=== PATIENT | male | born 1945 | race Caucasian/White ===

== ENCOUNTER 2021-06-24 09:11 | Day surgery (SDC) | payer OTHER ==
[2021-06-23 11:09] LABS: Absolute Lymphocytes (CBC) 1.7 K/uL (0.7-4.9); Hematocrit 36.1 % (39.6-49.0); Lymphocytes % 19.9 % (15.3-44.8); MPV 8.2 fL (7.6-11.3); RBC Red Blood Cell Count 4.22 M/uL (4.33-5.43)
[2021-06-24] MEDS ORDERED: Ringers Lactate 1,000 ML IV ONE (09:25)
[2021-06-24] MEDS ORDERED: CEFAZOLIN SODIUM 1 GM/VIAL ONE (10:05)
[2021-06-24] MEDS ORDERED: NA CHLORIDE 0.9% 50 ML ONE (10:05)
[2021-06-24] MEDS ORDERED: FENTANYL CITR 100 MCG/2 ML ONE (11:00)
[2021-06-24] MEDS ORDERED: LIDOCAINE 1% MPF 5 ML VIAL ONE (11:00)
[2021-06-24] MEDS ORDERED: propofoL 200 MG/20 ML VIAL IV ONE ×2 (11:00→11:06)
[2021-06-24] MEDS ORDERED: LIDOCAINE 1% MPF 30 ML VIAL IJ ONE (11:14)
[2021-06-24] MEDS ORDERED: KETOROLAC 30 MG/ML INJ ONE (11:20)
[2021-06-24] MEDS ORDERED: Mastisol Adhesive Liq ONE (11:27)
--- NOTE | 2021-06-24 12:00 | P.OP ---
Date of Service: 06/24/21 Preop diagnosis: Colorectal carcinoma Postop diagnosis: Same Procedure performed: Placement of right IJ Port-A-Cath, interpretation of intraoperative fluoroscopy Surgeon: Emanuel Mejia MD Facilities Management Executive: Sandrita BANDA Estimated blood loss: Minimal Specimen: None Findings: Normal anatomy Anesthesia: MAC Complications: None Drains: None Fluids and blood products: None applicable Disposition: Recovery room Operative note: Patient brought to the OR and placed in supine position. MAC anesthesia begun. Patient prepped and draped in the usual sterile fashion. Lidocaine 1% infiltrated locally. 18-gauge needle used to access the right IJ vein. Guidewire passed and position confirmed with fluoroscopy. 3 cm counterincision made on the right anterior chest. Pocket created. Tunneling device used to place the catheter in the proper position. Seldinger technique used. Tip of the catheter placed in the SVC. Catheter cut to appropriate size and attached to the Port-A-Cath device. Port-A-Cath device attached to the subcutaneous tissue with 3-0 Vicryl. Port flushed with heparin and packed with heparin with good blood flow. 3-0 chromic used to reapproximate subcutaneous tissue and closed skin. Sterile dressing applied. Patient tolerated procedure in stable condition taken to recovery in good general condition. Chest x-ray has been ordered. CC: Dr. Zapata's office
--- NOTE | 2021-06-24 12:16 | RAD REPORT ---
EXAM DESCRIPTION: RAD - Chest Single View - 06/24/2021 12:00 pm CLINICAL HISTORY: S/P PORT A CATH PLACEMENT Chest pain. COMPARISON: No comparisons FINDINGS: Portable technique limits examination quality. The lungs are mildly emphysematous but grossly clear. The heart is normal in size. No displaced fract ures.Right-sided venous catheter is in place with its tip in the SVC. No postprocedure pneumothorax. IMPRESSION: No postprocedure pneumothorax.
[2021-06-24 12:25] VITALS: BP 111/66; TEMP 97; O2SAT 100
--- NOTE | 2021-06-24 14:51 | RAD REPORT ---
EXAM DESCRIPTION: RAD - Fluoroscopy <1 Hour - 06/24/2021 2:42 pm CLINICAL HISTORY: Device placement central venous catheter placement FINDINGS: A central venous catheter was placed into the superior vena cava. 2 fluoroscopic spot adrien ges are submitted. Fluoroscopy time .2 minutes The examination was performed by Dr. Mejia
== END 2021-06-24 13:10 | disposition home or self-care (01) ==
LOC: OR 09:11
PROVIDERS: ATTEND Surgery
PROC: 0JH60WZ Insertion of Totally Implantable Vascular Access Device into Chest Subcutaneous Tissue and Fascia, Open Approach (ICD-10-PCS; principal; 2021-06-24 11:00)
DX: C18.9 Malignant neoplasm of colon, unspecified (principal); Z20.822 Contact with and (suspected) exposure to COVID-19
CPT/HCPCS: 85025; 36415; 71045; 76000; 36561; U0003; J2704 ×2; J3010; J7120; J0690

== ENCOUNTER 2022-01-29 19:55 | Emergency (ER) | payer OTHER ==
[2022-01-29] MEDS ORDERED: ONDANSETRON 4 MG/2 ML VIAL ONE (20:57)
[2022-01-29 21:00] LABS: Absolute Lymphocytes (CBC) 0.8 K/uL (0.7-4.9); Hematocrit 35.2 % (39.6-49.0); Lymphocytes % 5.6 % (15.3-44.8); MCV 84.3 fL (80-100); RBC Red Blood Cell Count 4.17 M/uL (4.33-5.43)
--- NOTE | 2022-01-29 21:06 | RAD REPORT ---
EXAM DESCRIPTION: RAD - Chest Single View - 01/29/2022 8:46 pm CLINICAL HISTORY: FEVER COMPARISON: Portable June 24 TECHNIQUE: AP portable chest image was obtained 01/29/2022 8:46 pm . FINDINGS: Patient has a baseline prominent interstitial lung pattern not substantially different fro m comparison. Mild interstitial edema or infiltrate could be masked by this baseline pattern. Right-sided Port-A-Cath remains in place. Heart and vasculature are normal. No measurable pleural effusion and no pneumothorax. No acute bony abnormality seen. No acute aortic f indings suspected. IMPRESSION: Chronic interstitial lung pattern not substantially different from comparison. Severity of chronic disease could mask superimposed edema or infiltrate. .
[2022-01-29 21:17] LABS: Albumin 2.6 g/dL (3.4-5.0); Bilirubin Total 0.9 mg/dL (0.2-1.0); Potassium 3.3 mmol/L (3.5-5.1); Protein, Total 5.8 g/dL (6.4-8.2)
[2022-01-29 21:36] LABS: SARS-COV-2 RT PCR NEGATIVE (NEGATIVE)
[2022-01-29 21:44] LABS: Urine Blood 3+ (Negative); Urine Glucose Negative (Negative); Urine Protein 3+ (Negative); Urine Specific Gravity 1.025 (1.005-1.030)
[2022-01-29 22:17] LABS: Urine Crystals Unidentified Few /HPF (None Seen); Urine Mucus Slight /HPF (None Seen); Urine RBC >50 /HPF (None Seen)
--- NOTE | 2022-01-29 22:28 | RAD REPORT ---
EXAM DESCRIPTION: CT - Abdomen Pelvis W Contrast - 01/29/2022 9:53 pm CLINICAL HISTORY: Nausea/vomiting COMPARISON: No comparisons TECHNIQUE: Biphasic, helical CT imaging of the abdomen and pelvis was performed following 100 ml non -ionic IV contrast. Oral contrast: No. All CT scans are performed using dose optimization technique as appropriate and may include automated exposure control or mA/KV adjustment according to patient size. FINDINGS: Scarring and atelectasis present in the lung bases. Heart size is upper normal. Pericardia l effusion is present up to 2 cm in thickness along the posterior margin. The liver, spleen, and pancreas show no suspicious findings. Gallbladder and biliary tree are also wi thout suspicious finding. Symmetric renal function is seen with no hydronephrosis or suspicious renal mass. No pyelonephritis o r acute parenchymal process. No adrenal abnormalities. Urinary bladder is grossly abnormal. Bladder is only partially filled. There is enhancement along the mucosal surface. Sharma are thickened and edematous with stranding and edema in the adjacent fat. Air and fluid are present within a significantly dilated stomach. Wall thickening or mass of the stom ach is not seen. An obstructing outlet mass is not identified. Duodenum is unremarkable. Multiple flu id-filled small bowel loops are present. Appendicitis is not suspected. There is a large amount of st ool causing significant distention of colon. Sigmoid and rectal sharma are slightly thickened. No veda cent inflammatory stranding. Distal esophageal sharma are thickened. No free air, free fluid or inflammatory stranding. No hernia, mass or bulky lymphadenopathy. Disc and bone degenerative changes are present. No pathologic bone process. IMPRESSION: Abnormal urinary bladder suspicious for cystitis. Correlation is needed with supporting clinical findings. Significant gastric dilatation without wall thickening, mass or obstruction identifiable. Pericardial effusion up to 2 cm in thickness. Constipation pattern with large stool volume distending the entirety of the colon.
--- NOTE | 2022-01-29 22:54 | ER ---
Nurse's Notes [facility] Name: Warren Hutchinson Age: 76 yrs Sex: Male : 1945 Arrival Date: 01/29/2022 Time: 20:06 Bed 9 Private MD: Diagnosis: Nausea with vomiting, unspecified;UTI/ Urinary tract infection, site not specified Presentation: 01/29 20:06 Chief complaint: EMS states: We were called to [facility] for 2 days of vc1 nausea/vomiting/fever and abnormal bloodwork. 20:06 Coronavirus screen: Vaccine status: Patient reports receiving the 2nd dose of the covid vc1 vaccine. Plus 2 boosters; Pfizer fatigue, fever, nausea, vomiting. Client presents with at least one sign or symptom that may indicate coronavirus-19. Standard/surgical mask placed on the client. Provider contacted for isolation considerations. Ebola Screen: No symptoms or risks identified at this time. Initial Sepsis Screen: Does the patient meet any 2 criteria? No. Patient's initial sepsis screen is negative. Does the patient have a suspected source of infection? No. Patient's initial sepsis screen is negative. Risk Assessment: Do you want to hurt yourself or someone else? Patient reports no desire to harm self or others. Onset of symptoms was January 27, 2022. Care prior to arrival: IV initiated. 18 GA, in the right forearm. 20:06 Method Of Arrival: EMS: [facility] vc1 20:06 Acuity: KARLENE 3 vc1 Triage Assessment: 20:29 General: Appears in no apparent distress. uncomfortable, ill, Behavior is calm, vc1 cooperative, appropriate for age. Pain: Denies pain. EENT: No deficits noted. Neuro: Level of Consciousness is awake, alert, obeys commands, Oriented to person, place, time, situation. Neuro: Reports weakness. Cardiovascular: No deficits noted. Respiratory: Airway is patent Respiratory effort is even, unlabored, Respiratory pattern is regular, symmetrical. GI: Reports nausea, vomiting. : No signs and/or symptoms were reported regarding the genitourinary system. Derm: No signs and/or symptoms reported regarding the dermatologic system. Musculoskeletal: Reports weakness in all over. Historical: - Allergies: 20:22 Sulfa (Sulfonamide Antibiotics); vc1 20:22 Codeine; vc1 - Home Meds: 20:22 Colace 100 mg oral cap 1 cap once daily [Active]; Ditropan XL 10 mg Oral tr24 1 tab vc1 once daily [Active]; Enulose 10 gram/15 mL oral soln 30 mL twice a day [Active]; Flomax 0.4 mg Oral cap 1 cap once daily [Active]; loperamide 2 mg Oral cap 1 caps every 4 hours for diarrhea [Active]; melatonin 5 mg Oral tab nightly [Active]; Proscar 5 mg Oral tab 1 tab once daily [Active]; verapamil 240 mg Oral TbER 1 tab once daily [Active]; - PMHx: 20:22 BPH; Colon Cancer; Anemia; Colitis; Hypertensive disorder; Paraplegia; Spinal Stenosis; vc1 21:47 Cystitis; UTI; vc1 - PSHx: 20:22 None; vc1 - Immunization history:: Client reports receiving the 2nd dose of the Covid vaccine. - Social history:: Smoking status: Patient/guardian denies using tobacco, but has a distant history of tobacco abuse. - Family history:: not pertinent. Screenin:28 Abuse screen: Denies threats or abuse. Nutritional screening: No deficits noted. vc1 Tuberculosis screening: No symptoms or risk factors identified. Fall Risk None identified. Assessment: 21:49 Reassessment: Patient and/or family updated on plan of care and expected duration. Pain vc1 level reassessed. Patient states symptoms have improved. 23:36 Reassessment: Patient is alert, oriented x 3, equal unlabored respirations, skin bb warm/dry/pink. DON at bedside for transportation back to [facility]. Vital Signs: 20:06 BP 114 / 65 Sitting (auto/reg); Pulse 80 MON; Resp 15 S; Temp 99.1(O); Pulse Ox 96% ; vc1 Weight 65.77 kg; Height 5 ft. 9 in. (175.26 cm); 21:47 Temp 99.2(O); vc1 22:08 BP 107 / 61; Pulse 65; Resp 16; Pulse Ox 97% on R/A; vc1 20:06 Body Mass Index 21.41 (65.77 kg, 175.26 cm) vc1 ED Course: 20:06 Patient arrived in ED. vc1 20:06 Kwame Keller MD is Attending Physician. rt 20:10 Maintain EMS IV. Dressing intact. Good blood return noted. Site clean \T\ dry. Gauge \T\ vc 1 site: 18g right forearm. 20:12 Pinky Phoenix, RN is Primary Nurse. vc1 20:22 Triage completed. vc1 20:28 Arm band placed on left wrist. vc1 20:29 Patient has correct armband on for positive identification. Bed in low position. Call vc1 light in reach. Side rails up X2. Client placed on continuous cardiac and pulse oximetry monitoring. NIBP monitoring applied. 20:48 Chest Single View XRAY In Process Unspecified. EDMS 20:51 Lipase Sent. vc1 20:51 CMP Sent. vc1 20:51 CBC with Diff Sent. vc1 21:35 Straight cath inserted, using sterile technique, 16 Fr. Specimen obtained. Returned vc1 cloudy urine. Patient tolerated poorly. 21:46 UA MICROSCOPIC Sent. vc1 21:55 CT Abd/Pelvis - IV Contrast Only In Process Unspecified. EDMS Administered Medications: 21:13 Drug: Zofran (Ondansetron) 4 mg Route: IVP; Site: left forearm; vc1 23:02 Follow up: Response: No adverse reaction; Marked relief of symptoms vc1 Medication: 20:29 VIS not applicable for this client. vc1 Outcome: 22:53 Discharge ordered by . rt 23:36 Patient left the ED. bb Signatures: Dispatcher [employer] EDJoana Gómez RN RN bb Pinky Phoenix RN RN vc1 Kwame Keller MD MD rt
--- NOTE | 2022-01-29 22:54 | EDPHYS ---
Physician Documentation [facility] Name: Warren Hutchinson Age: 76 yrs Sex: Male : 1945 Arrival Date: 01/29/2022 Time: 20:06 Bed 9 Private MD: KOJO Physician Kwame Keller HPI: 01/29 20:15 This 76 yrs old Male presents to ER via Unassigned with complaints of Nausea vomiting. rt 20:15 The patient presents to the emergency department with nausea, vomiting. Onset: The rt symptoms/episode began/occurred yesterday. The symptoms are aggravated by nothing. The symptoms are alleviated by nothing. Associated signs and symptoms: The patient has no apparent associated signs or symptoms. Patient with history of rectal cancer 10 weeks out from radiation scheduled to have surgery in about a week presents to the ED with nausea and vomiting starting yesterday, 3 episodes yesterday, 2 episodes today. It is nonbloody, nonbilious. Denies any abdominal pain, diarrhea, other acute complaints. States that he had a fever yesterday, but of 99 today. Symptoms are moderate severity, no other aggravating alleviating factors.. Historical: - Allergies: 20:22 Sulfa (Sulfonamide Antibiotics); vc1 20:22 Codeine; vc1 - Home Meds: 20:22 Colace 100 mg oral cap 1 cap once daily [Active]; Ditropan XL 10 mg Oral tr24 1 tab vc1 once daily [Active]; Enulose 10 gram/15 mL oral soln 30 mL twice a day [Active]; Flomax 0.4 mg Oral cap 1 cap once daily [Active]; loperamide 2 mg Oral cap 1 caps every 4 hours for diarrhea [Active]; melatonin 5 mg Oral tab nightly [Active]; Proscar 5 mg Oral tab 1 tab once daily [Active]; verapamil 240 mg Oral TbER 1 tab once daily [Active]; - PMHx: 20:22 BPH; Colon Cancer; Anemia; Colitis; Hypertensive disorder; Paraplegia; Spinal Stenosis; vc1 21:47 Cystitis; UTI; vc1 - PSHx: 20:22 None; vc1 - Immunization history:: Client reports receiving the 2nd dose of the Covid vaccine. - Social history:: Smoking status: Patient/guardian denies using tobacco, but has a distant history of tobacco abuse. - Family history:: not pertinent. ROS: 20:15 Eyes: Negative for injury, pain, redness, and discharge, ENT: Negative for injury, rt pain, and discharge, Neck: Negative for injury, pain, and swelling, Cardiovascular: Negative for chest pain, palpitations, and edema, Respiratory: Negative for shortness of breath, cough, wheezing, and pleuritic chest pain, : Negative for injury, bleeding, discharge, and swelling, MS/Extremity: Negative for injury and deformity, Skin: Negative for injury, rash, and discoloration, Neuro: Negative for headache, weakness, numbness, tingling, and seizure, Psych: Negative for depression, anxiety, suicide ideation, homicidal ideation, and hallucinations. 20:15 Constitutional: Positive for fever, Negative for body aches. 20:15 Abdomen/GI: Positive for nausea and vomiting, Negative for abdominal pain. Exam: 20:15 Constitutional: This is a well developed, well nourished patient who is awake, alert, rt and in no acute distress. Head/Face: Normocephalic, atraumatic. Eyes: Pupils equal round and reactive to light, extra-ocular motions intact. Lids and lashes normal. Conjunctiva and sclera are non-icteric and not injected. Cornea within normal limits. Periorbital areas with no swelling, redness, or edema. ENT: Nares patent. No nasal discharge, no septal abnormalities noted. Tympanic membranes are normal and external auditory canals are clear. Oropharynx with no redness, swelling, or masses, exudates, or evidence of obstruction, uvula midline. Mucous membranes moist. Neck: Trachea midline, no thyromegaly or masses palpated, and no cervical lymphadenopathy. Supple, full range of motion without nuchal rigidity, or vertebral point tenderness. No Meningismus. Chest/axilla: Normal chest wall appearance and motion. Nontender with no deformity. No lesions are appreciated. Cardiovascular: Regular rate and rhythm with a normal S1 and S2. No gallops, murmurs, or rubs. Normal PMI, no JVD. No pulse deficits. Respiratory: Lungs have equal breath sounds bilaterally, clear to auscultation and percussion. No rales, rhonchi or wheezes noted. No increased work of breathing, no retractions or nasal flaring. Abdomen/GI: Soft, non-tender, with normal bowel sounds. No distension or tympany. No guarding or rebound. No evidence of tenderness throughout. Skin: Warm, dry with normal turgor. Normal color with no rashes, no lesions, and no evidence of cellulitis. MS/ Extremity: Pulses equal, no cyanosis. Neurovascular intact. Full, normal range of motion. Neuro: Awake and alert, GCS 15, oriented to person, place, time, and situation. Cranial nerves II-XII grossly intact. Motor strength 5/5 in all extremities. Sensory grossly intact. Cerebellar exam normal. Normal gait. Psych: Awake, alert, with orientation to person, place and time. Behavior, mood, and affect are within normal limits. Vital Signs: 20:06 BP 114 / 65 Sitting (auto/reg); Pulse 80 MON; Resp 15 S; Temp 99.1(O); Pulse Ox 96% ; vc1 Weight 65.77 kg; Height 5 ft. 9 in. (175.26 cm); 21:47 Temp 99.2(O); vc1 22:08 BP 107 / 61; Pulse 65; Resp 16; Pulse Ox 97% on R/A; vc1 20:06 Body Mass Index 21.41 (65.77 kg, 175.26 cm) vc1 MDM: 20:06 Patient medically screened. rt 22:55 Differential diagnosis: Nonspecific abd pain, pancreatitis, diverticulitis, rt gastroenteritis, SBO, UTI. Data reviewed: vital signs, nurses notes, lab test result(s), radiologic studies. ED course: Patient presents to the ED with nausea, vomiting. Symptoms have resolved with treatment in the ED. The patient is found to have UTI, the leukocytosis, no other sirs indicators. He has benign abdominal examination. CT scan was obtained, i was informed of incidental findings of pericardial effusion, constipation, dilated stomach contents. Do not believe this is contributing to the patient's vomiting at this time, labs otherwise unremarkable. Patient stable for outpatient care with antibiotics, antiemetics. Believe that he is stable to keep his appointment for surgery in 1 week. He will return for any worsening symptoms or new concerning symptoms. Patient verbalized understanding is comfortable discharge.. 01/29 20:13 Order name: CBC with Diff; Complete Time: 22:24 rt 01/29 20:13 Order name: CMP; Complete Time: 22:24 rt 01/29 20:13 Order name: Lipase; Complete Time: 22:24 rt 01/29 20:13 Order name: UA MICROSCOPIC; Complete Time: 22:29 rt 01/29 20:13 Order name: COVID-19/FLU A+B; Complete Time: 22:24 rt 01/29 21:44 Order name: Urine Dipstick-Ancillary; Complete Time: 22:24 EDMS 01/29 20:13 Order name: CT Abd/Pelvis - IV Contrast Only; Complete Time: 22:40 rt 01/29 20:13 Order name: Urine Dipstick-Ancillary (obtain specimen); Complete Time: 21:46 rt 01/29 20:13 Order name: Chest Single View XRAY; Complete Time: 22:24 rt Administered Medications: 21:13 Drug: Zofran (Ondansetron) 4 mg Route: IVP; Site: left forearm; vc1 23:02 Follow up: Response: No adverse reaction; Marked relief of symptoms vc1 Disposition Summary: 01/29/22 22:53 Discharge Ordered Location: Home rt Problem: new rt Symptoms: are resolved rt Condition: Stable rt Diagnosis - Nausea with vomiting, unspecified rt - UTI/ Urinary tract infection, site not specified rt Followup: rt - With: Private Physician - When: 5 - 6 days - Reason: Discharge Instructions: - Discharge Summary Sheet rt - Urinary Tract Infection, Adult rt - Nausea and Vomiting, Adult, [id number] rt Forms: - Medication Reconciliation Form rt - Thank You Letter rt - Antibiotic Education rt - Prescription Opioid Use rt Prescriptions: - KELFEX 500 mg tab - take 1 tablet by ORAL route every 6 hours; 28 tablet; Refills: 0, Product rt Selection Permitted - Zofran 4 mg Oral Tablet - take 1 tablet by ORAL route every 12 hours As needed; 20 tablet; Refills: 0, rt Product Selection Permitted Signatures: Dispatcher [employer] Pinky Jordan RN RN vc1 Enma Garcia PA-C PA-C [id number] Kwame Keller MD MD rt
[2022-01-30 00:34] VITALS: TEMP 99.2
[2022-01-30 00:36] VITALS: BP 107/61; O2SAT 97
== END 2022-01-29 23:36 | disposition home or self-care (01) ==
LOC: ER 19:55
DX: N39.0 Urinary tract infection, site not specified (principal); I10 Essential (primary) hypertension; Z88.2 Allergy status to sulfonamides; Z88.5 Allergy status to narcotic agent; Z20.822 Contact with and (suspected) exposure to COVID-19
CPT/HCPCS: 85025; 36415; 83690; 80053; 0240U; 74177; 71045; 51702; 96374; 99284; Q9967; J2405; 81003; 81015

== ENCOUNTER 2022-07-05 11:06 | Emergency (ER) | payer OTHER ==
[2022-07-05 12:04] LABS: Absolute Lymphocytes (CBC) 0.8 K/uL (0.7-4.9); Hematocrit 36.9 % (39.6-49.0); Lymphocytes % 9.8 % (15.3-44.8); MCV 83.5 fL (80-100); MPV 7.7 fL (7.6-11.3); RBC Red Blood Cell Count 4.43 M/uL (4.33-5.43)
[2022-07-05 12:24] LABS: Albumin 3.2 g/dL (3.4-5.0); Bilirubin Total 0.7 mg/dL (0.2-1.0); Potassium 4.1 mEq/L (3.5-5.1); Protein, Total 6.3 g/dL (6.4-8.2); Protime INR 1.04
--- NOTE | 2022-07-05 13:12 | RAD REPORT ---
EXAM DESCRIPTION: CTAbdomen Pelvis W Contrast - 07/05/2022 12:58 pm CLINICAL HISTORY: Abdominal pain. ab distention COMPARISON: Abdomen Pelvis W Contrast dated 01/29/2022 TECHNIQUE: Biphasic CT imaging of the abdomen and pelvis was performed with 100 ml non-ionic IV cont rast. All CT scans are performed using dose optimization technique as appropriate and may include automated exposure control or mA/KV adjustment according to patient size. FINDINGS: Mild linear atelectasis is present in the right lung base.Small to moderate pericardial ef fusion noted. Mild fatty liver. The spleen, pancreas, adrenal glands and kidneys are within normal limits. Left lower quadrant ostomy is noted. There is significant distention of small bowel loops likely jodi cating mechanical small-bowel obstruction. Distal small bowel is somewhat decompressed. Urinary bladd er appears thickened. The appendix is normal. No free air evident. No abscess. No suspicious bony findings. IMPRESSION: Moderate distention with fluid and air of numerous small bowel loops in the central abdo men most compatible with moderate mechanical small-bowel obstruction. No pneumatosis or pneumoperiton eum. Small to moderate pericardial the fusion, appearing chronic. Thickened urinary bladder likely represents chronic cystitis.
[2022-07-05 13:58] LABS: Urine Bacteria >50 /HPF (<20); Urine RBC >50 /HPF (None Seen)
[2022-07-05] MEDS ORDERED: NA CHLORIDE 0.9% 1,000 ML ONE (14:36)
[2022-07-05] MEDS ORDERED: CEFTRIAXONE 1000 MG/VIAL ONE (14:36)
--- NOTE | 2022-07-05 14:36 | ER ---
Nurse's Notes [facility] Name: Warren Hutchinson Age: 76 yrs Sex: Male : 1945 Arrival Date: 07/05/2022 Time: 11:06 Bed 16 Private MD: Diagnosis: Small bowel obstruction;Urinary tract infection;Gross hematuria with obstruction Presentation: 07/05 11:04 Chief complaint: EMS states: patient from [facility]. Came for bleeding from penis not db emptying bladder and abdominal distention. Coronavirus screen: Vaccine status: Patient reports receiving the 2nd dose of the covid vaccine. Client denies travel out of the [place] in the last 14 days. At this time, the client does not indicate any symptoms associated with coronavirus-19. Ebola Screen: Patient negative for fever greater than or equal to 101.5 degrees Fahrenheit, and additional compatible Ebola Virus Disease symptoms Patient denies exposure to infectious person. Patient denies travel to an Ebola-affected area in the 21 days before illness onset. No symptoms or risks identified at this time. Initial Sepsis Screen: Does the patient meet any 2 criteria? No. Patient's initial sepsis screen is negative. Does the patient have a suspected source of infection? No. Patient's initial sepsis screen is negative. Risk Assessment: Do you want to hurt yourself or someone else? Patient reports no desire to harm self or others. Onset of symptoms was July 05, 2022. 11:04 Method Of Arrival: EMS: [facility] db 11:04 Acuity: KARLENE 3 db Triage Assessment: 11:13 General: Appears in no apparent distress. uncomfortable, Behavior is calm, cooperative, eh3 appropriate for age. Pain: Complains of pain in abdomen and pelvis. GI: Abdomen is round distended. Historical: - Allergies: 11:13 Codeine; eh3 11:13 Sulfa (Sulfonamide Antibiotics); eh3 11:14 Sulfa (Sulfonamide Antibiotics); db 11:14 Codeine; db - Home Meds: 11:13 Colace 100 mg Oral cap 1 cap once daily [Active]; Ditropan XL 10 mg Oral tr24 1 tab eh3 once daily [Active]; Enulose 10 gram/15 mL Oral soln 30 mL twice a day [Active]; Flomax 0.4 mg Oral cap 1 cap once daily [Active]; loperamide 2 mg Oral cap 1 caps every 4 hours for diarrhea [Active]; melatonin 5 mg Oral tab nightly [Active]; Proscar 5 mg Oral tab 1 tab once daily [Active]; verapamil 240 mg Oral TbER 1 tab once daily [Active]; - PMHx: 11:13 Anemia; BPH; Colitis; colon cancer; Cystitis; Hypertensive disorder; Paraplegia; spinal eh3 stenosis; UTI; 11:14 Gastroesophageal reflux disease; rectal cancer; Hypertensive disorder; Depressive db disorder; spinal stenosis; - PSHx: 11:14 Colostomy; rectal surgery; db - Immunization history:: Adult Immunizations up to date, Client reports receiving the 2nd dose of the Covid vaccine. - Social history:: Smoking status: unknown Smoking status: Patient denies any tobacco usage or history of. - Family history:: not pertinent. Screenin:54 [facility] ED Fall Risk Assessment (Adult) History of falling in the last 3 months, db including since admission No falls in past 3 months (0 pts) Confusion or Disorientation No (0 pts) Intoxicated or Sedated No (0 pts) Impaired Gait Yes (1 pt) Mobility Assist Device Used Yes (1 pt) Altered Elimination Yes (1 pt) Score/Fall Risk Level 3 or more points = High Risk Oriented to surroundings, Maintained a safe environment, Educated pt \T\ family on fall prevention, incl call for assistance when getting out of bed. Abuse screen: Denies threats or abuse. Denies injuries from another. Nutritional screening: No deficits noted. Tuberculosis screening: No symptoms or risk factors identified. Assessment: 11:18 Reassessment: Patient appears in no apparent distress at this time. Patient and/or db family updated on plan of care and expected duration. Pain level reassessed. Patient is alert, oriented x 3, equal unlabored respirations, skin warm/dry/pink. : Reports bleeding from penis. 12:15 Reassessment: Received report from CECILIO Veloz. renny 12:15 Reassessment: Bladder scanner not located in ER. Charge nurse, Daphne, and Director, renny Savage, notified. 12:28 General: Appears in no apparent distress. Pain: Denies pain. Neuro: Level of mb9 Consciousness is awake, alert, obeys commands, Oriented to person, place, time, situation, Appropriate for age. Cardiovascular: Patient's skin is warm and dry. Respiratory: Airway is patent Respiratory effort is even, unlabored, Respiratory pattern is regular, symmetrical. : Reports burning with urination. : Urine is blood tinged, Reports blood in urine. Derm: Skin is pink, warm \T\ dry. Musculoskeletal: Range of motion: limited in all extremities. 12:30 GI: Abdomen is round distended, Colostomy site is clean and dry. Ostomy appliance is mb9 intact. Bowel sounds present X 4 quads. Abd is non tender. 13:46 Reassessment: No changes from previously documented assessment. Patient and/or family mb9 updated on plan of care and expected duration. Pain level reassessed. Patient is alert, oriented x 3, equal unlabored respirations, skin warm/dry/pink. : Urine is blood tinged. 17:42 Reassessment: Gave report to [facility]. mb9 Vital Signs: 11:04 BP 119 / 82; Pulse 69; Resp 14; Temp 99.8(O); Pulse Ox 97% on R/A; Weight 61.23 kg; db Height 5 ft. 9 in. ; 11:30 BP 114 / 74; Pulse 65; Resp 16; Pulse Ox 96% on R/A; db 12:28 BP 121 / 75; Pulse 56; Resp 18; Pulse Ox 98% on R/A; Pain 0/10; mb9 13:45 BP 128 / 82; Pulse 56; Resp 16; Pulse Ox 100% on R/A; mb9 11:04 Body Mass Index 19.94 (61.23 kg, 175.26 cm) db 12:28 Pain Scale: Adult mb9 ED Course: 11:10 Patient arrived in ED. eh3 11:12 Kwame Keller MD is Attending Physician. rt 11:12 Roselia Corona, CECILIO is Primary Nurse. db 11:13 Triage completed. eh3 11:13 Arm band placed on. eh3 11:14 Patient placed in an exam room. db 11:49 Initial lab(s) drawn, by me, First set of blood cultures drawn by me. db 11:49 Inserted saline lock: 20 gauge in left antecubital area, using aseptic technique. Blood db collected. 12:14 Second set of blood cultures drawn by me. mb9 12:29 Placed in gown. Bed in low position. Call light in reach. Side rails up X 1. Client mb9 placed on continuous cardiac and pulse oximetry monitoring. NIBP monitoring applied. pvc monitor on. 12:29 No provider procedures requiring assistance completed. mb9 12:30 Blood Culture Adult (2) Sent. mb9 13:00 CT Abd/Pelvis - IV Contrast Only In Process Unspecified. EDMS 13:19 Bladder scan completed. [address] Keller notified. mb9 13:40 Paez cath inserted, using sterile technique, [address], balloon inflated, to mb9 gravity drainage, urine specimen collected. returned bloody urine. Patient tolerated well. 14:44 initiated transfer to [facility], faxed chart to ER as requested by Ros in transfer bd center. 17:03 Patient transferred, IV remains in place. mb9 Administered Medications: 14:38 Drug: NS 0.9% IV 1000 ml Route: IV; Rate: 1 bolus; Site: left antecubital; mb9 14:38 Drug: Rocephin IV 2 grams Route: IV; Rate: calculated rate; Site: left antecubital; mb9 Medication: 12:29 VIS not applicable for this client. mb9 Output: 17:41 Urine: 750ml (Paez); Total: 750ml. mb9 Outcome: 14:35 ER care complete, transfer ordered by . rt 17:03 Transferred to [facility] Transfer form completed. mb9 17:03 Transferred Note: Gave report to transferring nurse CECILIO Porter 17:03 Condition: stable 17:03 Instructed on the need for transfer. 17:43 Patient left the ED. mb9 Signatures: Dispatcher [employer] ED[facility] Brandy Cheung Erin, RN RN 3 Roselia Corona, RN RN Allyson Austin RN RN mb9 Kwame Keller MD MD rt Corrections: (The following items were deleted from the chart) 11:15 11:11 Chief complaint: EMS states: abdominal distention and pain, [facility] 11:15 11:11 Coronavirus screen: Vaccine status: Patient reports receiving the 2nd dose of the 3 covid vaccine. [facility] 11:15 11:11 Ebola Screen: No symptoms or risks identified at this time. [place] [id number] 11:15 11:11 Risk Assessment: Do you want to hurt yourself or someone else? Patient reports no [facility] desire to harm self or others. [facility] 11 11:11 Onset of symptoms was July 04, 2022 [place] [id number] 11 11:11 Method Of Arrival: EMS: [facility] [place] [id number] 11:11 Acuity: KARLENE 3 [place] [address] 11:56 11:54 Inserted saline lock: 20 gauge in left antecubital area, using aseptic technique. db Blood collected. db 12:30 12:28 Respiratory: Airway is patent Respiratory effort is even, unlabored, Respiratory mb9 pattern is regular, symmetrical, mb9 13:21 12:30 GI: Abdomen is round distended, Bowel sounds present X 4 quads. Abd is non tender mb9 mb9 13:52 13:45 Urinalysis+U.LAB.BRZ drawn and sent. mb9 EDMS
--- NOTE | 2022-07-05 14:36 | EDPHYS ---
Physician Documentation [facility] Name: Warren Hutchinson Age: 76 yrs Sex: Male : 1945 Arrival Date: 07/05/2022 Time: 11:06 Bed 16 Private MD: ED Physician Kawme Keller HPI: 07/05 12:20 This 76 yrs old Male presents to ER via EMS with complaints of Penile Bleeding, rt Abdominal Distention. 12:20 Patient with history of colorectal cancer status postresection presents to the ED with rt fever, reported hematuria. Patient states that he has been nauseated for about 2 days now. [facility] There is noted to be a small amount of blood in the brief. He denies any dysuria, other symptoms at this time. Symptoms are moderate in severity, no other aggravating or alleviating factors.. Historical: - Allergies: 11:13 Codeine; eh3 11:13 Sulfa (Sulfonamide Antibiotics); eh3 11:14 Sulfa (Sulfonamide Antibiotics); db 11:14 Codeine; db - Home Meds: 11:13 Colace 100 mg Oral cap 1 cap once daily [Active]; Ditropan XL 10 mg Oral tr24 1 tab eh3 once daily [Active]; Enulose 10 gram/15 mL Oral soln 30 mL twice a day [Active]; Flomax 0.4 mg Oral cap 1 cap once daily [Active]; loperamide 2 mg Oral cap 1 caps every 4 hours for diarrhea [Active]; melatonin 5 mg Oral tab nightly [Active]; Proscar 5 mg Oral tab 1 tab once daily [Active]; verapamil 240 mg Oral TbER 1 tab once daily [Active]; - PMHx: 11:13 Anemia; BPH; Colitis; colon cancer; Cystitis; Hypertensive disorder; Paraplegia; spinal eh3 stenosis; UTI; 11:14 Gastroesophageal reflux disease; rectal cancer; Hypertensive disorder; Depressive db disorder; spinal stenosis; - PSHx: 11:14 Colostomy; rectal surgery; db - Immunization history:: Adult Immunizations up to date, Client reports receiving the 2nd dose of the Covid vaccine. - Social history:: Smoking status: unknown Smoking status: Patient denies any tobacco usage or history of. - Family history:: not pertinent. ROS: 12:20 Cardiovascular: Negative for chest pain, palpitations, and edema, Respiratory: Negative rt for shortness of breath, cough, wheezing, and pleuritic chest pain, MS/Extremity: Negative for injury and deformity, Skin: Negative for injury, rash, and discoloration, Neuro: Negative for headache, weakness, numbness, tingling, and seizure, Psych: Negative for depression, anxiety, suicide ideation, homicidal ideation, and hallucinations. 12:20 Constitutional: Positive for fever, Negative for chills. 12:20 Abdomen/GI: Positive for nausea, Negative for abdominal pain, vomiting. 12:20 : Positive for hematuria, Negative for burning with urination. Exam: 12:20 Constitutional: This is a well developed, well nourished patient who is awake, alert, rt and in no acute distress. Head/Face: Normocephalic, atraumatic. Chest/axilla: Normal chest wall appearance and motion. Nontender with no deformity. No lesions are appreciated. Cardiovascular: Regular rate and rhythm with a normal S1 and S2. No gallops, murmurs, or rubs. Normal PMI, no JVD. No pulse deficits. Respiratory: Lungs have equal breath sounds bilaterally, clear to auscultation and percussion. No rales, rhonchi or wheezes noted. No increased work of breathing, no retractions or nasal flaring. Skin: Warm, dry with normal turgor. Normal color with no rashes, no lesions, and no evidence of cellulitis. MS/ Extremity: Pulses equal, no cyanosis. Neurovascular intact. Full, normal range of motion. Neuro: Awake and alert, GCS 15, oriented to person, place, time, and situation. Cranial nerves II-XII grossly intact. Motor strength 5/5 in all extremities. Sensory grossly intact. Cerebellar exam normal. Normal gait. Psych: Awake, alert, with orientation to person, place and time. Behavior, mood, and affect are within normal limits. 12:20 ECG was reviewed by the Attending Physician. 12:20 Abdomen/GI: Mild abdominal distention, colostomy bag present, no abdominal tenderness. Vital Signs: 11:04 BP 119 / 82; Pulse 69; Resp 14; Temp 99.8(O); Pulse Ox 97% on R/A; Weight 61.23 kg; db Height 5 ft. 9 in. ; 11:30 BP 114 / 74; Pulse 65; Resp 16; Pulse Ox 96% on R/A; db 12:28 BP 121 / 75; Pulse 56; Resp 18; Pulse Ox 98% on R/A; Pain 0/10; mb9 13:45 BP 128 / 82; Pulse 56; Resp 16; Pulse Ox 100% on R/A; mb9 11:04 Body Mass Index 19.94 (61.23 kg, 175.26 cm) db 12:28 Pain Scale: Adult mb9 MDM: 11:12 Patient medically screened. rt 16:28 Differential diagnosis: UTI, gross hematuria, urinary retention, bowel obstruction. rt Data reviewed: vital signs, nurses notes, lab test result(s), radiologic studies. Consideration of Admission/Observation We will transfer his patient as he is a [facility] patient and his colostomy surgery was performed at the [facility] less than 6 months ago.. I considered the following discharge prescriptions or medication management in the emergency department Medications were administered in the Emergency Department. See MAR. Independent interpretation of the following test(s) in the Emergency Department CT Scan: My interpretation is Obstruction, small bowel seen on my interpretation of the CT scan images. Care significantly affected by the following chronic conditions: Colorectal cancer status post resection. Response to treatment: the patient's symptoms have markedly improved after treatment. 07/05 11:12 Order name: Blood Culture Adult (2) rt 07/05 11:12 Order name: CBC with Diff; Complete Time: 13:14 rt 07/05 11:12 Order name: CMP; Complete Time: 13:14 rt 07/05 11:12 Order name: Lactate w/ 2H reflex if indic.; Complete Time: 13:14 rt 07/05 11:12 Order name: Protime (+inr); Complete Time: 13:14 rt 07/05 11:12 Order name: Ptt, Activated; Complete Time: 13:14 rt 07/05 13:52 Order name: Urine Microscopic Only; Complete Time: 14:00 EDMS 07/05 14:01 Order name: Urine Culture EDMS 07/05 11:12 Order name: CT Abd/Pelvis - IV Contrast Only; Complete Time: 13:14 rt 07/05 11:12 Order name: EKG; Complete Time: 11:13 rt 07/05 11:12 Order name: Accucheck; Complete Time: 12:30 rt 07/05 11:12 Order name: Cardiac monitoring; Complete Time: 11:55 rt 07/05 11:12 Order name: EKG - Nurse/Tech; Complete Time: 11:55 rt 07/05 11:12 Order name: IV Saline Lock - Large Bore; Complete Time: 12:09 rt 07/05 11:12 Order name: Labs collected and sent; Complete Time: 12:09 rt 07/05 11:12 Order name: O2 Per Protocol; Complete Time: 12: rt 07/05 11:12 Order name: O2 Sat Monitoring; Complete Time: 12: rt 07/05 11:12 Order name: Vital Signs; Complete Time: 12: rt 07/05 11:13 Order name: Bladder Scanner; Complete Time: 13:20 rt 07/05 13:20 Order name: Paez; Complete Time: 13:20 mb9 EC:20 Rate is 68 beats/min. Rhythm is regular, Normal Sinus Rhythm with No ectopy. Right axis rt deviation noted. LA interval is normal. QRS interval is normal. QT interval is normal. Clinical impression: NSR w/ Non-specific ST/T Changes. Administered Medications: 14:38 Drug: NS 0.9% IV 1000 ml Route: IV; Rate: 1 bolus; Site: left antecubital; mb9 14:38 Drug: Rocephin IV 2 grams Route: IV; Rate: calculated rate; Site: left antecubital; mb9 Disposition Summary: 07/05/22 14:35 Transfer Ordered Transfer Location[facility] rt Reason: Private Physician at Transferring Hospital rt Condition: Stable rt Problem: new rt Symptoms: are unchanged rt Accepting Physician: Dr. Jin(07/05/22 17:43) mb9 Diagnosis - Small bowel obstruction rt - Urinary tract infection rt - Gross hematuria with obstruction rt Forms: - Medication Reconciliation Form rt - SBAR form rt Signatures: Dispatcher [employer] Geneva Chu RN RN 3 Roselia Corona RN RN db Breneman, Mary Beth, RN RN mb9 Kwame Keller MD MD rt Corrections: (The following items were deleted from the chart) 13:52 11:13 Urinalysis+U.LAB.BRZ ordered. EUNICE EDMS 16:26 14:35 rt rt 17:43 16:26 Dr. Jin rt mb9
[2022-07-05 18:10] VITALS: BP 128/82; O2SAT 100
--- NOTE | 2022-07-06 14:28 | EKG ---
Test Date: 2022-07-05 Test Time: 11:27:51 Manager Of Employee Relations: BRENDAN MEASUREMENT RESULTS: Intervals: Rate: 68 OK: 170 QRSD: 84 QT: 406 QTc: 431 [place]: P: 19 OK: 170 QRS: 99 T: 13 INTERPRETIVE STATEMENTS: Normal sinus rhythm Rightward axis Anterior infarct, age undetermined Abnormal ECG No previous ECG available for comparison Electronically Signed On 07-06-22 14:26:22 CDT by Neptali Pretty
== END 2022-07-05 17:43 ==
LOC: ER 11:06
DX: K56.609 Unspecified intestinal obstruction, unspecified as to partial versus complete obstruction (principal); N39.0 Urinary tract infection, site not specified; R31.0 Gross hematuria; I10 Essential (primary) hypertension; Z85.038 Personal history of other malignant neoplasm of large intestine; Z85.048 Personal history of other malignant neoplasm of rectum, rectosigmoid junction, and anus; Z88.2 Allergy status to sulfonamides; Z88.5 Allergy status to narcotic agent
CPT/HCPCS: 87040 ×2; 87088; 85025; 87086; 36415; 85610; 83605; 85730; 81015; 80053; 74177; Q9967; J7030; J0696; 93005

== ENCOUNTER 2023-11-30 16:34 | Emergency (ER) | payer OTHER ==
[2023-11-30] MEDS ORDERED: NA CHLORIDE 0.9% 1,000 ML ONE ×2 (16:53→19:24)
[2023-11-30] MEDS ORDERED: FAMOTIDINE 20 MG/2 ML VIAL IV ONE (16:53)
[2023-11-30] MEDS ORDERED: ONDANSETRON 4 MG/2 ML VIAL ONE ×2 (16:53→23:49)
[2023-11-30 16:58] LABS: Absolute Basophils 0.1 K/uL (0-0.5); Absolute Eosinophils 0.2 K/uL (0-0.5); Absolute Lymphocytes (CBC) 1.3 K/uL (0.7-4.9); Absolute Monocytes 0.9 K/uL (0.1-1.3); Absolute Neutrophil 6.2 K/uL (1.8-8.0); Basophils % 0.7 % (0-1.3); Hematocrit 40.3 % (39.6-49.0); Hemoglobin 13.7 g/dL (13.6-17.9); Lymphocytes % 14.7 % (15.3-44.8); MCHC 33.9 g/dL (32.0-36.0); MCV 85.6 fL (80-100); MPV 7.3 fL (7.6-11.3); Monocytes % 10.5 % (3.3-12.3); Neutrophils % 72.1 % (41.7-73.7); Nucleated Red Blood Cells % 0.1 % (0-0); Platelets 308 thou/uL (152-406); RBC Red Blood Cell Count 4.71 M/uL (4.33-5.43)
[2023-11-30 17:14] LABS: Albumin 3.3 g/dL (3.4-5.0); Albumin/Globulin Ratio 0.9 (1.1-1.8); Anion Gap 11.5 mEq/L (5.0-15.0); Bilirubin Total 0.6 mg/dL (0.2-1.0); Globulin 3.8 g/dL (2.3-3.5); Potassium 3.5 mEq/L (3.5-5.1); Protein, Total 7.1 g/dL (6.4-8.2)
--- NOTE | 2023-11-30 18:27 | RAD REPORT ---
EXAMINATION: CT ABDOMEN AND PELVIS WITH CONTRAST CLINICAL INDICATION: Abd pain;Constipation TECHNIQUE: CT abdomen and pelvis was performed, after the administration of IV contrast, as per [facility] protocol. Axial, sagittal and coronal reconstructions were obtained. One or more of the following dose reduction techniques were used: Automated exposure control, adjustment of the mA and k V according to patient size, and iterative reconstruction. Unless otherwise specified, incidental findings do not require dedicated imaging follow-up. COMPARISON: No prior exam. FINDINGS: LOWER CHEST: The visualized lung bases are clear. LIVER: Normal in size and contour. No focal lesion. SPLEEN: Normal size. No focal lesion. PANCREAS: No mass, ductal dilation, or aleksander-pancreatic fluid. ADRENALS: Normal; no mass. KIDNEYS: Normal size and contour. No hydronephrosis. GASTROINTESTINAL TRACT: Multiple dilated small bowel loops are present in the central abdomen extendi ng inferiorly. This most significant dilated loop measuring 5 cm. This is compatible with a moderate mechanical small bowel obstruction. Left lower quadrant colostomy is noted. APPENDIX: Normal appendix. Small appendicolith. LYMPH NODES: No lymphadenopathy. MUSCULOSKELETAL: No acute or suspicious osseous abnormality. ADDITIONAL FINDINGS: None. IMPRESSION: Moderately severe mechanical small bowel obstruction is present.No pneumoperitoneum.
[2023-11-30] MEDS ORDERED: LIDOCAINE VISCOUS 2% 10ML ORAL SOLN ONE (18:35)
[2023-11-30] MEDS ORDERED: NA CHLORIDE 0.9% 100 ML ONE (18:57)
[2023-11-30] MEDS ORDERED: PIPERACIL/TAZO 3.375 GM VIAL IV ONE (18:58)
[2023-11-30 19:00] LABS: Specific Gravity 1.022 (1.005-1.030); Sqamous Epithelial None Seen /HPF (None Seen); Urine Bacteria None Seen /HPF (<20); Urine Bilirubin NEGATIVE (Negative); Urine Blood 2+ (Negative); Urine Clarity Clear (Clear); Urine Color Light-Yellow (Yellow); Urine Culture Reflex Order NOT NEEDED; Urine Glucose NEGATIVE (Negative); Urine Ketones NEGATIVE (Negative); Urine Microscopic Reflex YN ORDER UMIC; Urine Mucus Slight /HPF (None Seen); Urine Nitrite NEGATIVE (Negative); Urine Protein NEGATIVE (Negative); Urine Urobilinogen Normal (Normal); Urine WBC <5 /HPF (<5); Urine Yeast (Budding) Trace /HPF (None Seen)
--- NOTE | 2023-11-30 19:07 | ER ---
Nurse's Notes [facility] Name: Warren Hutchinson Age: 78 yrs Sex: Male : 1945 Arrival Date: 11/30/2023 Time: 16:34 Bed 19 Private MD: Diagnosis: Other and unspecified intestinal obstruction-moderate to severe high grade mechanical obstruction;Colostomy complication, unspecified;Abdominal pain, Generalized Presentation: 11/29 16:34 Chief complaint: EMS states: Pt is from [facility], rectal discomfort that rs5 started this morning. PCP ordered a scan that showed rectal impaction and instructed pt to go to the ER. Discharged home from hospital just yesterday for abdominal obstruction. Pt has colostomy bag. reports last BM Sunday. Coronavirus screen: At this time, the client does not indicate any symptoms associated with coronavirus-19. Ebola Screen: No symptoms or risks identified at this time. Initial Sepsis Screen: Does the patient meet any 2 criteria? No. Patient's initial sepsis screen is negative. Does the patient have a suspected source of infection? No. Patient's initial sepsis screen is negative. Risk Assessment: Do you want to hurt yourself or someone else? Patient reports no desire to harm self or others. Onset of symptoms was November 30, 2023. 16:34 Method Of Arrival: EMS: [facility] rs5 16:34 Acuity: KARLENE 3 rs5 Historical: - Allergies: 16:40 Codeine; rs5 16:40 Sulfa (Sulfonamide Antibiotics); rs5 - PMHx: 16:40 BPH; Colitis; colon cancer; Cystitis; depressive disorder; Gastroesophageal reflux rs5 disease; Hypertensive disorder; Hypertensive disorder; Paraplegia; rectal cancer; spinal stenosis; UTI; Anemia; spinal stenosis; - PSHx: 16:40 Colostomy; rectal surgery; rs5 - Immunization history:: Adult Immunizations up to date. - Infectious Disease History:: Denies. Denies. - Social history:: Smoking status: Patient/guardian denies using tobacco, but has a distant history of tobacco abuse. - Family history:: not pertinent. Screenin:45 [facility] ED Fall Risk Assessment (Adult) History of falling in the last 3 months, me1 including since admission No falls in past 3 months (0 pts) Confusion or Disorientation No (0 pts) Intoxicated or Sedated No (0 pts) Impaired Gait Yes (1 pt) Mobility Assist Device Used Yes (1 pt) Altered Elimination Yes (1 pt) Score/Fall Risk Level 3 or more points = High Risk Maintained a safe environment, Hourly rounding (assess needs \T\ fall precautionary measures) done, Used ambulatory aids as needed (educated on \T\ assisted with). Abuse screen: Denies threats or abuse. Nutritional screening: No deficits noted. Tuberculosis screening: No symptoms or risk factors identified. Assessment: 16:45 General: Appears comfortable, well groomed, well developed, well nourished, Behavior is me1 calm, cooperative, appropriate for age, Reports Pt is from [facility], rectal discomfort that started this morning. PCP ordered a scan that showed rectal impaction and instructed pt to go to the ER. Discharged home from hospital just yesterday for abdominal obstruction. Pt has colostomy bag. reports last BM Sunday. Pain: Denies pain. Neuro: Level of Consciousness is awake, alert, obeys commands, Oriented to person, place, time, situation, Appropriate for age. Cardiovascular: Patient's skin is warm and dry. Respiratory: Airway is patent Respiratory effort is even, unlabored, Respiratory pattern is regular, symmetrical. GI: Colostomy site is clean and dry. Ostomy appliance is intact. Reports Pt is from [facility], rectal discomfort that started this morning. PCP ordered a scan that showed rectal impaction and instructed pt to go to the ER. Discharged home from hospital just yesterday for abdominal obstruction. : No signs and/or symptoms were reported regarding the genitourinary system. EENT: No signs and/or symptoms were reported regarding the EENT system. Derm: Skin is intact, is healthy with good turgor, Skin is pink, warm \T\ dry. Musculoskeletal: No signs and/or symptoms reported regarding the musculoskeletal system. 23:28 General: Report given to CECILIO Olivares at the CT in [place]. me1 23:45 General: Verbal consent for conscious sedation to myself, Sondra Blakely RN with Dr byrnes1 Kathrine present. . Vital Signs: 16:34 BP 136 / 91; Pulse 70; Resp 17; Temp 98.2(O); Pulse Ox 97% on R/A; rs5 17:30 BP 148 / 81; Pulse 59; Resp 16; Pulse Ox 96% ; me1 18:30 BP 150 / 79; Pulse 60; Resp 16; Pulse Ox 98% ; me1 19:00 BP 146 / 82; Pulse 61; Resp 16; Pulse Ox 98% ; me1 19:54 Pain 2/10; me1 20:00 BP 142 / 80; Pulse 59; Resp 17; Pulse Ox 97% ; me1 21:00 BP 141 / 81; Pulse 61; Resp 16; Pulse Ox 97% ; me1 22:00 BP 153 / 82; Pulse 66; Resp 16; Pulse Ox 96% ; me1 23:00 BP 135 / 77; Pulse 56; Resp 16; Pulse Ox 92% ; me1 19:54 Pain Scale: Adult [facility] ED Course: 16:34 Patient arrived in ED. rs5 16:35 Keenan Rowe MD is Attending Physician. [facility] 16:40 Triage completed. rs5 16:40 Luciana Nagy, RN is Primary Nurse. pr1 16:45 No provider procedures requiring assistance completed. me1 16:45 Patient has correct armband on for positive identification. Bed in low position. Call [facility] light in reach. Side rails up X2. Provided Education on: POC. Verbalized understanding.. Client placed on continuous cardiac and pulse oximetry monitoring. NIBP monitoring applied. Pulse ox on. NIBP on. 16:51 CBC with Diff Sent. me1 16:51 CMP Sent. me1 16:51 Lipase Sent. pr1 16:51 Initial lab(s) drawn, by pr, sent to lab. Inserted saline lock: 22 gauge in left [facility] antecubital area, using aseptic technique. 18:23 CT Abd/Pelvis - PO and IV Contrast In Process Unspecified. EDMS 18:49 Urine collected: straight cath specimen, clear, Amount Returned: 550mL. pr1 18:49 Urinalysis w/ reflexes Sent. me1 19:45 initiated transfer with [facility] spoke with Ina. vk 20:06 Attending Physician role handed off by Keenan Rowe MD sp4 20:06 Humberto Chisholm MD is Attending Physician. sp4 21:22 patient was accepted to [facility] per Ina to the ER. vk 22:05 Abdomen 1 View (KUB) XRAY In Process Unspecified. EDMS 22:05 XRAY CXR (1 view) In Process Unspecified. EDMS 23:26 initiated transport called EMS spoke with Kimberlee asked if a truck was available she vk sated no due to both trucks transporting other patients. 23:31 initiated transport with [employer]. vk 23:32 Abdomen 1 View XRAY In Process Unspecified. EDMS 23:44 CT Chest Abdomen Pelvis W/O Contrast In Process Unspecified. EDMS 11/30 00:37 Abdomen Single View In Process Unspecified. EDMS 00:41 Patient transferred, IV remains in place. dd2 Administered Medications: 11/29 17:01 Drug: NS 0.9% IV 1000 ml IV at 1 bolus Per protocol; 1000 mL bolus Route: IV; Rate: 1 me1 bolus; Site: left antecubital; 19:06 Follow up: Response: No adverse reaction; IV Status: Completed infusion; IV Intake: me1 1000ml 17:01 Drug: Famotidine IVP 20 mg IVP once; dilute with 10 mL 0.9% NaCl; give over 2 minutes me1 Route: IVP; Site: left antecubital; 18:26 Follow up: Response: No adverse reaction me1 17:01 Drug: Ondansetron IVP 4 mg IVP once; over 2 minutes Route: IVP; Site: left antecubital; me1 18:27 Follow up: Response: No adverse reaction; Nausea is decreased me1 19:06 Drug: Piperacillin-Tazobactam IVPB 3.375 grams IVPB once over 60 mins; (mix in NS 100 me1 mL) Route: IVPB; Infused Over: 60 mins; Site: left antecubital; 19:35 Follow up: Response: No adverse reaction; IV Status: Completed infusion; IV Intake: me1 100ml 19:29 Drug: NS 0.9% IV 1000 ml IV at 125 ml/hr continuous Route: IV; Rate: 125 ml/hr; Site: me1 left antecubital; 19:54 Follow up: IV Status: Infusion continued upon transfer me1 19:29 Drug: fentaNYL (PF) IVP 25 mcg IVP once Route: IVP; Site: left antecubital; me1 19:54 Follow up: Pain 2/10 Adult; Response: No adverse reaction; Pain is decreased me1 21:53 Drug: HYDROmorphone IVP 1 mg IVP once Route: IVP; Site: left antecubital; me1 22:28 Follow up: Response: No adverse reaction; Pain is decreased me1 21:53 Drug: metoCLOPramide IVP 10 mg IVP once; over 1 to 2 minutes Route: IVP; Site: left me1 antecubital; 22:28 Follow up: Response: No adverse reaction; Nausea is decreased me1 23:36 Drug: HYDROmorphone IVP 1 mg IVP once Route: IVP; Site: left antecubital; me1 23:42 Follow up: Response: No adverse reaction; Pain is decreased me1 23:42 Not Given (Duplicate Order): fentanyl (pf)25 mcg IVP once me1 23:45 Drug: Ondansetron IVP 4 mg IVP once; over 2 minutes Route: IVP; Site: left antecubital; me1 10 00:20 Follow up: Response: No adverse reaction dd2 11/29 23:57 Drug: Etomidate IVP 20 mg IVP once Route: IVP; Site: left antecubital; me1 23:59 Drug: Etomidate IVP 20 mg IVP once Route: IVP; Site: left antecubital; me1 11/30 00:14 Follow up: Response: No adverse reaction dd2 00:08 Drug: Etomidate IVP 20 mg IVP once Route: IVP; Site: left antecubital; me1 00:23 Follow up: Response: No adverse reaction dd2 Medication: 11/29 16:45 VIS not applicable for this client. me1 Intake: 19:06 IV: 1000ml; Total: 1000ml. me1 19:35 IV: 100ml; Total: 1100ml. me1 Outcome: 19:06 ER care complete, transfer ordered by MD. henderson 11/30 00:41 Transferred by ground EMS to [facility] Transfer form completed. dd2 Condition: stable Instructed on the need for transfer, 00:42 Patient left the ED. dd2 Signatures: Dispatcher [employer] Keenan Wilder MD MD cha Sotelo, Ricky, RN RN rs5 Humberto Chisholm MD MD sp4 Luciana Nagy RN RN me1 Crystal Tompkins DIANA, RN RN dd2 Corrections: (The following items were deleted from the chart) 11/29 18:28 16:34 Chief complaint: EMS states: Pt is from [facility], rectal discomfort me1 that started this morning. PCP ordered a scan that showed rectal impaction and instructed pt to go to the ER. Discharged home from hospital just yesterday for abdominal obstruction. Pt has colostomy bag. reports last Sunday rs5
--- NOTE | 2023-11-30 19:07 | EDPHYS ---
Physician Documentation [facility] Name: Warren Hutchinson Age: 78 yrs Sex: Male : 1945 Arrival Date: 11/30/2023 Time: 16:34 Bed 19 Private MD: ED Physician Humberto Chisholm HPI: 11/29 19:00 This 78 yrs old Male presents to ER via EMS with complaints of RECTAL santiago IMPACTION. 19:00 The patient presents with abdominal pain in the upper abdomen, in the lower abdomen, santiago abdominal distention in the upper abdomen, in the lower abdomen. Onset: The symptoms/episode began/occurred 2 day(s) ago. The patient presents to the emergency department with nausea, vomiting, abdominal pain, of the right upper quadrant, left upper quadrant, right lower quadrant and left lower quadrant. Onset: The symptoms/episode began/occurred 2 day(s) ago. Possible causes: sbo. The symptoms are aggravated by nothing. The symptoms are alleviated by nothing. Associated signs and symptoms: Pertinent positives: abdominal pain, nausea. The symptoms do not radiate. Modifying factors: The symptoms are alleviated by nothing, the symptoms are aggravated by movement, pressure. Historical: - Allergies: 16:40 Codeine; rs5 16:40 Sulfa (Sulfonamide Antibiotics); rs5 - PMHx: 16:40 BPH; Colitis; colon cancer; Cystitis; depressive disorder; Gastroesophageal reflux rs5 disease; Hypertensive disorder; Hypertensive disorder; Paraplegia; rectal cancer; spinal stenosis; UTI; Anemia; spinal stenosis; - PSHx: 16:40 Colostomy; rectal surgery; rs5 - Immunization history:: Adult Immunizations up to date. - Infectious Disease History:: Denies. Denies. - Social history:: Smoking status: Patient/guardian denies using tobacco, but has a distant history of tobacco abuse. - Family history:: not pertinent. ROS: 19:00 Constitutional: Negative for fever, chills, and weight loss, Eyes: Negative for injury, santiago pain, redness, and discharge, ENT: Negative for injury, pain, and discharge, Neck: Negative for injury, pain, and swelling, Cardiovascular: Negative for chest pain, palpitations, and edema, Respiratory: Negative for shortness of breath, cough, wheezing, and pleuritic chest pain, Back: Negative for injury and pain, : Negative for injury, bleeding, discharge, and swelling, MS/Extremity: Negative for injury and deformity, Skin: Negative for injury, rash, and discoloration, Neuro: Negative for headache, weakness, numbness, tingling, and seizure, Psych: Negative for depression, anxiety, suicide ideation, homicidal ideation, and hallucinations, Allergy/Immunology: Negative for hives, rash, and allergies, Endocrine: Negative for neck swelling, polydipsia, polyuria, polyphagia, and marked weight changes, Hematologic/Lymphatic: Negative for swollen nodes, abnormal bleeding, and unusual bruising, 19:00 Abdomen/GI: Positive for abdominal pain, nausea and vomiting, abdominal cramps, abdominal distension, Exam: 19:00 Constitutional: This is a well developed, well nourished patient who is awake, alert, santiago and in no acute distress. Head/Face: Normocephalic, atraumatic. Eyes: Pupils equal round and reactive to light, extra-ocular motions intact. Lids and lashes normal. Conjunctiva and sclera are non-icteric and not injected. Cornea within normal limits. Periorbital areas with no swelling, redness, or edema. ENT: Nares patent. No nasal discharge, no septal abnormalities noted. Tympanic membranes are normal and external auditory canals are clear. Oropharynx with no redness, swelling, or masses, exudates, or evidence of obstruction, uvula midline. Mucous membranes moist. Neck: Trachea midline, no thyromegaly or masses palpated, and no cervical lymphadenopathy. Supple, full range of motion without nuchal rigidity, or vertebral point tenderness. No Meningismus. Chest/axilla: Normal chest wall appearance and motion. Nontender with no deformity. No lesions are appreciated. Cardiovascular: Regular rate and rhythm with a normal S1 and S2. No gallops, murmurs, or rubs. Normal PMI, no JVD. No pulse deficits. Respiratory: Lungs have equal breath sounds bilaterally, clear to auscultation and percussion. No rales, rhonchi or wheezes noted. No increased work of breathing, no retractions or nasal flaring. Back: No spinal tenderness. No costovertebral tenderness. Full range of motion. Male : Normal genitalia with no discharge or lesions. Skin: Warm, dry with normal turgor. Normal color with no rashes, no lesions, and no evidence of cellulitis. MS/ Extremity: Pulses equal, no cyanosis. Neurovascular intact. Full, normal range of motion. Neuro: Awake and alert, GCS 15, oriented to person, place, time, and situation. Cranial nerves II-XII grossly intact. Motor strength 5/5 in all extremities. Sensory grossly intact. Cerebellar exam normal. Normal gait. Psych: Awake, alert, with orientation to person, place and time. Behavior, mood, and affect are within normal limits. 19:00 Abdomen/GI: Inspection: distension, that is mild, that is moderate, Bowel sounds: diminished, in all quadrants, Palpation: mild abdominal tenderness, in the right lower quadrant and left lower quadrant, Liver: no appreciated palpable abnormalities, Hernia: not appreciated, Vital Signs: 16:34 BP 136 / 91; Pulse 70; Resp 17; Temp 98.2(O); Pulse Ox 97% on R/A; rs5 17:30 BP 148 / 81; Pulse 59; Resp 16; Pulse Ox 96% ; me1 18:30 BP 150 / 79; Pulse 60; Resp 16; Pulse Ox 98% ; me1 19:00 BP 146 / 82; Pulse 61; Resp 16; Pulse Ox 98% ; me1 19:54 Pain 2/10; me1 20:00 BP 142 / 80; Pulse 59; Resp 17; Pulse Ox 97% ; me1 21:00 BP 141 / 81; Pulse 61; Resp 16; Pulse Ox 97% ; me1 22:00 BP 153 / 82; Pulse 66; Resp 16; Pulse Ox 96% ; me1 23:00 BP 135 / 77; Pulse 56; Resp 16; Pulse Ox 92% ; me1 19:54 Pain Scale: Adult me1 Procedures: 11/30 00:21 Moderate sedation: Pre-procedure assessment: the patient has been NPO 4 hour(s) prior sp4 to arrival, ASA physical classification: III - organic disease with definite functional impairment, Airway assessment: able to hyperextend neck, able to maintain airway, can open mouth without difficulty, Mallampati classification of tongue size: II - faucial pillars and soft palate can be visualized, but uvula is masked by the base of the tongue, Monitoring during procedure: monitoring coordinator, continuous pulse oximetry, nurse at bedside at all times, Medications employed: Etomidate, 40 mg(s), Moderate sedation administered for NG tube placement. Patient could not tolerate NG tube any other way., Post-procedure assessment: the patient is moderately sedated, Read sedation score: 4 - brisk response to a light glabellar tap, Respiratory status: requires supplemental oxygen to maintain acceptable oxygen saturation, a reversal agent was not used, Tolerated without complications., NG tube was placed with a glide scope guidance, Total procedure time 25 minutes . 03:28 Performed NG tube replacement. Prior NG tube was found to be coiled in esophagus. NG sp4 tube was removed. Patient was given moderate sedation with etomidate. Another NG tube was placed at this time successfully and confirmed with abdominal x-ray. At this time patient stable for transfer, no complications. MDM: 11/29 16:35 Patient medically screened. [facility] 19:03 Differential diagnosis: Nonspecific abd pain, pancreatitis, diverticulitis, viral santiago gastroenteritis, gastroenteritis, diverticulitis, gastroesophageal reflux disease, non-specific abd pain, pancreatitis, Peptic Ulcer Disease, Pyelonephritis, urinary tract infection. Data reviewed: vital signs, nurses notes, lab test result(s), radiologic studies, CT scan. Consideration of Admission/Observation Escalation of care including admission/observation considered. I considered the following discharge prescriptions or medication management in the emergency department Medications were administered in the Emergency Department. See MAR. Independent interpretation of the following test(s) in the Emergency Department CT Scan: My interpretation is ct abd /pel negative. Test considered but Not performed: Ultrasound no abd usg. Historians other than the Patient: pt well informed. Care significantly affected by the following chronic conditions: Hypertension, Obesity, Cancer, bph, colitis, depression, gerd. Counseling: I had a detailed discussion with the patient and/or guardian regarding the historical points, exam findings, and any diagnostic results supporting the discharge/admit diagnosis, lab results, radiology results, the need to transfer to another facility, for higher level of care, [facility] does not immediately have the required specialist. 21:35 ED course: Was discussed with the [place] emergency physician and accepted for transfer for sp4 high-grade small bowel obstruction . NG-tube was ordered. 11/30 00:19 ED course: Clinical Indication: Bed Name: . Comparison: None. FINDINGS: Supine sp4 radiograph of the abdomen, 1 view, was obtained. Gas distended bowel is noted in the mid and upper abdomen. There is no pneumatosis or mass effect. There are no radiopaque densities noted. The bony structures are unremarkable. A nasogastric tube is noted with its tip just in the fundus of the stomach. The side-port is in the distal esophagus. If clinically indicated would recommend advancement by 15 cm. IMPRESSION: 1. Nasogastric tube with its side-port in the distal esophagus.. Electronically signed by: Stiven Ley MD 12/01/2023 12:06 AM. ED course: EXAMINATION: CTABDOMEN AND PELVIS WITH CONTRAST CLINICAL INDICATION: Abd pain;Constipation TECHNIQUE: CT abdomen and pelvis was performed, after the administration of IV contrast, as per department protocol. Axial, sagittal and coronal reconstructions were obtained. One or more of the following dose reduction techniques were used: Automated exposure control, adjustment of the mA and kV according to patient size, and iterative reconstruction. Unless otherwise specified, incidental findings do not require dedicated imaging follow-up. COMPARISON: No prior exam. FINDINGS: LOWER CHEST: The visualized lung bases are clear. LIVER: Normal in size and contour. No focal lesion. SPLEEN: Normal size. No focal lesion. PANCREAS: No mass, ductal dilation, or aleksander-pancreatic fluid. ADRENALS: Normal; no mass. KIDNEYS: Normal size and contour. No hydronephrosis. GASTROINTESTINAL TRACT: Multiple dilated small bowel loops are present in the central abdomen extending inferiorly. This most significant dilated loop measuring 5 cm. This is compatible with a moderate mechanical small bowel obstruction. Left lower quadrant colostomy is noted. APPENDIX: Normal appendix. Small appendicolith. LYMPH NODES: No lymphadenopathy. MUSCULOSKELETAL: No acute or suspicious osseous abnormality. ADDITIONAL FINDINGS: None. IMPRESSION: Moderately severe mechanical small bowel obstruction is present. No pneumoperitoneum. . 03:26 ED course: IMPRESSION: 1. Malpositioned enteric tube. Partially visualized enteric tube sp4 takes a loop in mid to upper esophagus and terminates in the stomach. The sidehole of the enteric tube is in the region of gastroesophageal junction. 2. Small pericardial effusion. 3. Multiple dilated small bowel loops and mildly fluid distended colon, suspicious for low-grade obstruction. However no definite transition point is identified. 4. Focal inflammation at the most dilated small bowel loop in the mid abdomen. 5. Urinary bladder diverticulum. 6. Additional chronic findings as described. Electronically signed by: Maryann Guzman MD 12/01/2023 12:53 AM [email or web address] Work[employer]. ED course: After NG tube repositioning - EXAMINATION: XR ABDOMEN 1 VIEW (KUB) INDICATION: Male, 78 years old, repeat placement NG tube TECHNIQUE: 1 view COMPARISON(S): CT chest/abdomen/pelvis performed 30 minutes prior FINDINGS: See below. IMPRESSION: 1. Intervally advanced enteric tube with side-port and tip now projecting over the left upper quadrant in appropriate position. 2. No other significant interval change from 30 minutes prior. Dilated bowel loops in the upper abdomen. . 11/29 16:38 Order name: CBC with Diff; Complete Time: 18:52 santiago 11/29 16:38 Order name: CMP; Complete Time: 18:52 santiago 11/29 16:38 Order name: Lipase; Complete Time: 18:52 santiago 11/29 16:38 Order name: Urinalysis w/ reflexes; Complete Time: 21:20 santiago 11/29 16:38 Order name: CT Abd/Pelvis - PO and IV Contrast; Complete Time: 18:52 santiago 11/29 21:33 Order name: Abdomen 1 View (KUB) XRAY; Complete Time: 23:31 sp4 11/29 21:54 Order name: XRAY CXR (1 view); Complete Time: 23:31 me1 11/29 22:56 Order name: Abdomen 1 View XRAY sp4 11/29 23:20 Order name: CT Chest Abdomen Pelvis W/O Contrast sp4 11/30 00:37 Order name: Abdomen Single View EDMS 11/29 16:38 Order name: IV Saline Lock; Complete Time: 16:51 santiago 11/29 16:38 Order name: Labs collected and sent; Complete Time: 16:51 santiago 11/29 21:33 Order name: NG Tube; Complete Time: 21:54 sp4 11/29 23:54 Order name: Moderate Sedation; Complete Time: 00:21 sp4 Administered Medications: 11/29 17:01 Drug: NS 0.9% IV 1000 ml IV at 1 bolus Per protocol; 1000 mL bolus Route: IV; Rate: 1 me1 bolus; Site: left antecubital; 19:06 Follow up: Response: No adverse reaction; IV Status: Completed infusion; IV Intake: me1 1000ml 17:01 Drug: Famotidine IVP 20 mg IVP once; dilute with 10 mL 0.9% NaCl; give over 2 minutes me1 Route: IVP; Site: left antecubital; 18:26 Follow up: Response: No adverse reaction me1 17:01 Drug: Ondansetron IVP 4 mg IVP once; over 2 minutes Route: IVP; Site: left antecubital; me1 18:27 Follow up: Response: No adverse reaction; Nausea is decreased me1 19:06 Drug: Piperacillin-Tazobactam IVPB 3.375 grams IVPB once over 60 mins; (mix in NS 100 me1 mL) Route: IVPB; Infused Over: 60 mins; Site: left antecubital; 19:35 Follow up: Response: No adverse reaction; IV Status: Completed infusion; IV Intake: me1 100ml 19:29 Drug: NS 0.9% IV 1000 ml IV at 125 ml/hr continuous Route: IV; Rate: 125 ml/hr; Site: [facility] left antecubital; 19:54 Follow up: IV Status: Infusion continued upon transfer me1 19:29 Drug: fentaNYL (PF) IVP 25 mcg IVP once Route: IVP; Site: left antecubital; me1 19:54 Follow up: Pain 04/07 Adult; Response: No adverse reaction; Pain is decreased me1 21:53 Drug: HYDROmorphone IVP 1 mg IVP once Route: IVP; Site: left antecubital; me1 22:28 Follow up: Response: No adverse reaction; Pain is decreased me1 21:53 Drug: metoCLOPramide IVP 10 mg IVP once; over 1 to 2 minutes Route: IVP; Site: left tx1 antecubital; 22:28 Follow up: Response: No adverse reaction; Nausea is decreased me1 23:36 Drug: HYDROmorphone IVP 1 mg IVP once Route: IVP; Site: left antecubital; me1 23:42 Follow up: Response: No adverse reaction; Pain is decreased me1 23:42 Not Given (Duplicate Order): fentanyl (pf)25 mcg IVP once me1 23:45 Drug: Ondansetron IVP 4 mg IVP once; over 2 minutes Route: IVP; Site: left antecubital; me1 11/30 00:20 Follow up: Response: No adverse reaction dd2 11/29 23:57 Drug: Etomidate IVP 20 mg IVP once Route: IVP; Site: left antecubital; tx1 23:59 Drug: Etomidate IVP 20 mg IVP once Route: IVP; Site: left antecubital; me1 11/30 00:14 Follow up: Response: No adverse reaction dd2 00:08 Drug: Etomidate IVP 20 mg IVP once Route: IVP; Site: left antecubital; me1 00:23 Follow up: Response: No adverse reaction dd2 Disposition Summary: 11/30/23 19:06 Transfer Ordered Notes: Transfer Location: [facility] santiago Reason: Higher level of care santiago Condition: Fair santiago Problem: new santiago Symptoms: are unchanged santiago Accepting Physician: to mt(12/01/23 00:42) dd2 Diagnosis - Other and unspecified intestinal obstruction - moderate to severe high grade santiago mechanical obstruction - Colostomy complication, unspecified santiago - Abdominal pain, Generalized santiago Discharge Instructions: - Discharge Summary Sheet aa5 Forms: - Medication Reconciliation Form santiago - SBAR form aa5 Critical care time excluding procedures: 03:28 Critical care time: Bedside Care: 36 minutes, Consultation: 12 minutes, Family sp4 Intervention: 12 minutes. Total time: 60 minutes Signatures: Dispatcher [employer] EDMS Keenan Rowe MD MD cha Sotelo, Ricky, RN RN rs5 Humberto Chisholm MD MD sp4 Luciana Nagy RN RN me1 YINKA DUGAN RN RN dd2 Corrections: (The following items were deleted from the chart) 11/29 19:06 19:06 to [facility] 11/30 00:32 00:21 Moderate sedation: Pre-procedure assessment: the patient has been NPO 4 hour(s) sp4 prior to arrival, ASA physical classification: III - organic disease with definite functional impairment, Airway assessment: able to hyperextend neck, able to maintain airway, can open mouth without difficulty, Mallampati classification of tongue size: II - faucial pillars and soft palate can be visualized, but uvula is masked by the base of the tongue, Monitoring during procedure: monitoring coordinator, continuous pulse oximetry, nurse at bedside at all times, Medications employed: Etomidate, 40 mg(s), Moderate sedation administered for NG tube placement. Patient could not tolerate NG tube any other way., Post-procedure assessment: the patient is moderately sedated, Read sedation score: 4 - brisk response to a light glabellar tap, Respiratory status: requires supplemental oxygen to maintain acceptable oxygen saturation, a reversal agent was not used, Tolerated without complications., NG tube was placed with a glide scope guidance, sp4 00:37 00:17 Chest Single View+[email or web address] ordered. EDMS EDMS 00:42 11/29 19:06 to [facility] dd2
[2023-11-30] MEDS ORDERED: FENTANYL CITR 100 MCG/2 ML ONE (19:23)
[2023-11-30] MEDS ORDERED: METOCLOPRAMIDE 10 MG/2mL INJ ONE (21:35)
[2023-11-30] MEDS ORDERED: HYDROMORPHONE HCL 1 MG/ML INJ ONE ×2 (21:35→23:34)
--- NOTE | 2023-11-30 22:16 | RAD REPORT ---
EXAM: XR of the abdomen HISTORY: Abdominal pain obstructed bowel , NG tube COMPARISON: None FINDINGS: XR of the abdomen shows a multiple dilated small bowel loops in the upper abdomen compatibl e with mechanical small bowel obstruction.. The enteric tube appears positioned along the left of midline likely within the distal esophagus. The tip does not appear to be entering the stomach.
--- NOTE | 2023-11-30 22:17 | RAD REPORT ---
EXAMINATION: ONE VIEW CHEST XR CLINICAL INDICATION: NG tube placement. TECHNIQUE: Frontal chest projection is submitted. Examination is limited by patient positioning and t echnique. COMPARISON: KUB same day FINDINGS: The lungs are well inflated and clear. The heart is upper limit of normal in size. Enteric tube desce nds to the left of midline as it projects over the lower chest. This is most likely within the distal esophagus. The enteric tube is not seen entering the stomach.
[2023-11-30] MEDS ORDERED: ETOMIDATE 20 MG/10 ML VIAL IV ONE (23:54)
[2023-12-01] MEDS ORDERED: ETOMIDATE 20 MG/10 ML VIAL IV ONE (00:07)
--- NOTE | 2023-12-01 00:44 | RAD REPORT ---
Clinical Indication: Bed Name: 19. Comparison: None. FINDINGS: Supine radiograph of the abdomen, 1 view, was obtained. Gas distended bowel is noted in the mid and u pper abdomen. There is no pneumatosis or mass effect. There are no radiopaque densities noted. The bony structures are unrem arkable. A nasogastric tube is noted with its tip just in the fundus of the stomach. The side-port is in the d istal esophagus. If clinically indicated would recommend advancement by 15 cm. IMPRESSION: 1. Nasogastric tube with its side-port in the distal esophagus.. Electronically signed by: Stiven Ley MD 12/01/2023 12:06 AM CDT RP Due to temporary technical issues with the PACS/[employer] reporting system, reports are being michael d by the in-house radiologist without review as a courtesy to ensure prompt reporting the interpreting radiologist is fully responsible for the content of the report. Transcribed Date/Time: 12/01/2023 12:44 AM
[2023-12-01 01:13] VITALS: TEMP 98.2
--- NOTE | 2023-12-01 01:25 | RAD REPORT ---
CT CHEST ABDOMEN PELVIS WITHOUT IV CONTRAST CLINICAL INDICATIONS: NT tube pain, evaluate NT tube placement COMPARISON: CT abdomen and pelvis 11/30/2023 TECHNIQUE: CT images of the chest, abdomen and pelvis were obtained without contrast. Multiplanar ref ormats were provided. MIP reformats of the chest was also provided. Dose lowering techniques such as automated exposure control, iterative reconstruction, and mA and/or kV adjustment for patient size was utilized for this examination. CHEST FINDINGS: LOWER NECK: Unremarkable. AIRWAYS: Trachea and mainstem bronchi are patent. Mild bronchiectasis at medial aspect of the right l ower lobe with associated mucous plugging. LUNGS/PLEURA: The lung apices are not included in the [id number]. Small subcentimeter calcified gr anuloma in left lower lobe. Mild streaky opacities in the posterior bilateral lower lobes and lingular, likely subsegmental atelectasis. No pleural effusions or pneumothorax. VASCULATURE: No evidence of pulmonary intraluminal filling defects. No evidence of thoracic aortic aneurysm or dissection. MEDIASTINUM/NODES: Partially visualized enteric tube takes a loop in mid to upper esophagus and termi nates in the stomach. The sidehole of the enteric tube is in the region of gastroesophageal junction. No pathologic adenopathy. HEART: Mild multichamber cardiomegaly. Small pericardial effusion. OSSEOUS/CHEST WALL: No acute findings. No compression deformity. ABDOMEN/PELVIS FINDINGS: LIVER: Unremarkable. BILIARY: Vicarious contrast excretion in gallbladder. No radiopaque gallstones. No pericholecystic fl uid. No biliary ductal dilatation. PANCREAS: Unremarkable. SPLEEN: Unremarkable. ADRENALS: Unremarkable. KIDNEYS/URETERS: No hydronephrosis. Evaluation for renal stone is limited by retained contrast in barry al collecting systems. BOWEL/STOMACH: A left lower quadrant colostomy in place. Multiple dilated small bowel loops with air- fluid level, measuring up to 4.5 cm in diameter. There is mild perienteric stranding in the most dilated small bowel loop at mid abdomen on series 301 image 76 and series 203 image 26. No focal armenta sition point of caliber change is identified. There is gradual tapering of the bowel at it going into the left lower quadrant ostomy. The cecum and ascending colon is also fluid distended. There is intraluminal hyperdensity in the distal appendix, possibly appendicolith. No evidence of acute appendicitis. MESENTERY/PERITONEUM: No free fluid or free air. No focal collection. Mild presacral edema. Stable 1. 6 cm soft tissue nodule with some fat attenuation in the left peritoneal cavity on series 203 image 66, possibly a fat necrosis. LYMPH NODES: Unremarkable. URINARY BLADDER: Contrast in urinary bladder. Small 1.4 cm bladder diverticulum at the posterior righ t aspect. REPRODUCTIVE: Unremarkable. VASCULAR: No aortic aneurysm. ABDOMINAL/PELVIC WALL: Unremarkable. BONES: Stable compression deformity of L2 vertebral body. No acute findings. No compression deformi ty, nor osteolytic or sclerotic lesion. IMPRESSION: 1. Malpositioned enteric tube. Partially visualized enteric tube takes a loop in mid to upper esoph rodney and terminates in the stomach. The sidehole of the enteric tube is in the region of gastroesophageal junction. 2. Small pericardial effusion. 3. Multiple dilated small bowel loops and mildly fluid distended colon, suspicious for low-grade ob struction. However no definite transition point is identified. 4. Focal inflammation at the most dilated small bowel loop in the midabdomen. 5. Urinary bladder diverticulum. 6. Additional chronic findings as described. Electronically signed by: Maryann Guzman MD 12/01/2023 12:53 AM CDT Due to temporary technical issues with the PACS/[employer] reporting system, reports are being michael d by the in-house radiologist without review as a courtesy to ensure prompt reporting the interpreting radiologist is fully responsible for the content of the report. Transcribed Date/Time: 12/01/2023 1:25 AM
[2023-12-01 01:35] VITALS: BP 135/77; O2SAT 92
--- NOTE | 2023-12-01 01:50 | RAD REPORT ---
EXAMINATION: XR ABDOMEN 1 VIEW (KUB) INDICATION: Male, 78 years old, repeat placement NG tube TECHNIQUE: 1 view COMPARISON(S): CT chest/abdomen/pelvis performed 30 minutes prior FINDINGS: See below. IMPRESSION: 1. Intervally advanced enteric tube with side-port and tip now projecting over the left upper quadran t in appropriate position. 2. No other significant interval change from 30 minutes prior. Dilated bowel loops in the upper abdom en. Electronically signed by: Olaf Padilla MD 12/01/2023 01:30 AM CDT RP Due to temporary technical issues with the [employer] reporting system, reports are being michael d by the in-house radiologist without review as a courtesy to ensure prompt reporting the interpreting radiologist is fully responsible for the content of the report. Transcribed Date/Time: 12/01/2023 1:50 AM
== END 2023-12-01 00:42 ==
LOC: ER 16:34
DX: K56.699 Other intestinal obstruction unspecified as to partial versus complete obstruction (principal); K94.03 Colostomy malfunction; Z85.038 Personal history of other malignant neoplasm of large intestine; Z85.048 Personal history of other malignant neoplasm of rectum, rectosigmoid junction, and anus
CPT/HCPCS: 96365; 96361; 85025; 81001; 36415; 83690; 80053; 71250; 74176; 74177; 74018 ×3; 71045; 96375; 99285; Q9967; J2765; J2543; J3010; J1170 ×2; J2405 ×2; J7030 ×2